=== PATIENT | male | born 1945 | race Caucasian/White ===

== ENCOUNTER → 2018-01-23 11:34 | Outpatient (CLI) | payer MEDICARE, OTHER, SELFPAY ==
[2018-01-23 12:54] LABS: ALB/GLOB Ratio 1.1 RATIO (0.9-2.4); AST(SGOT) 24 U/L (15-37); Alanine Aminotransfer ALT/SGPT 25 U/L (16-61); Albumin, Serum 3.7 g/dL (3.2-5.0); Alkaline Phosphatase 76 U/L (45-117); Anion Gap 5 (5-15); BUN 18 mg/dL (7-18); BUN/Creat Ratio 15.8 RATIO (10-20); Calcium,Total 8.8 mg/dL (8.5-10.1); Chloride 104 mmol/L (98-107); Creatinine, Serum 1.14 mg/dL (0.70-1.30); EST Glomerular Filtration Rate 67 mL/min (>60); Est Glom Filt Rate - Afr Amer 81 mL/min (>60); Free T3 2.5 pg/mL (2.18-3.98); Globulin 3.4 g/dL (2.2-4.2); Glucose 95 mg/dL (74-106); Potassium 4.2 mmol/L (3.5-5.1); Protein, Total 7.1 g/dL (6.4-8.2); Sodium Level 138 mmol/L (136-145); T4 Free Direct 1.49 ng/dL (0.76-1.46)
== END ==
PROVIDERS: Visit Provider Nurse Practitioner
DX: I10 Essential (primary) hypertension (principal); E03.9 Hypothyroidism, unspecified
CPT/HCPCS: 36415; 80053; 84439; 84443; 84481

== ENCOUNTER 2019-05-14 15:31 | Inpatient (IN) | payer MEDICARE, OTHER, SELFPAY ==
[2019-05-14] VITALS (15 sets, daily range): BP systolic 134–168; BP diastolic 57–82; PULSE 76–102; RESP 17–22; TEMP 36.7–37.1; O2SAT 96–100; BMI 27.6; BMI 27.3; BMI 27.4
[2019-05-14 16:48] LABS: Absolute Lymphocyte Count 1.05 X10^3/uL (0.83-4.51); Absolute Neutrophil Count 4.8 X10^3/uL (2.0-7.7); Basophil# 0.08 X10^3/uL; Basophil% 1.1 % (0-1); Eosinophil# 0.07 X10^3/uL; Hematocrit 21.4 % (40-54); Lymphocyte # 1.05 X10^3/ul (4.0); Lymphocyte % 15.1 % (19-41); Mean Corp Hgb Conc 27.1 g/dL (32-36); Mean Corpuscular Hgb 18.1 pg (27.0-32.0); Mean Corpuscular Volume 66.7 fL (80-94); Mean Platelet Vol. 11.5 fl (6.2-12.0); Monocyte% 12.9 % (0-10); NRBC Flagged by Analyzer 0 % (0-5); Neutrophil # 4.82 X10^3/uL (2.7-7.7); Neutrophil % 69.3 % (47-70); POSITIVE COUNT YES; Platelet Count 391 K/mm3 (150-450); Red Blood Count 3.21 M/mm3 (4.6-6.2)
[2019-05-14 16:53] LABS: Differential Indicated SCAN CRITERIA MET; Hemoglobin 5.8 g/dL (13.0-16.5)
[2019-05-14 16:56] LABS: Anion Gap 7 (5-15); BUN 21 mg/dL (7-18); BUN/Creat Ratio 19.4 RATIO (10-20); Calcium,Total 8.9 mg/dL (8.5-10.1); Chloride 108 mmol/L (98-107); Creatinine, Serum 1.08 mg/dL (0.70-1.30); EST Glomerular Filtration Rate 71 mL/min (>60); Est Glom Filt Rate - Afr Amer 86 mL/min (>60); Estimated Creatinine Clearance 61.96 ml/min; Glucose 104 mg/dL (74-106); Sodium Level 140 mmol/L (136-145)
[2019-05-14 17:19] LABS: Prothrombin Time (Protime)PT. 13.9 SECONDS (11.7-14.9)
[2019-05-14 17:20] LABS: International Normalized Ratio 1.1; Partial Thromboplast Time 26.4 Seconds (24.1-36.2)
--- NOTE | 2019-05-14 17:40 | ED.RN ---
ON HOLD FOR EXTENDED PERIOD OF TIME. SPOKE WITH BIBI ABOUT PATIENT STATUS AND REASON FOR BEING IN THE ER, PER JAMISON. BIBI STATED WE WILL CHECK WITH YOU IN THE MORNING
--- NOTE | 2019-05-14 17:51 | ED.VISSUMM ---
- ER Visit Summary Date of Service: 05/14/19 Chief Complaint: Anemia History of Present Illness: The patient is a 73 M who goes to the [facility]. He reports that he went to his routine visit last week and had a blood draw either on Tuesday or , he cannot remember which, and was called today and told his hemoglobin was 6 and he needs to go to the emergency department. Patient denies any known source of blood loss. No trauma or surgery. He has had no blood in his stools or black tarry stools. Does report that he bruises easily, but this is just something is happened as he aged. He denies any easy bleeding. He is not on anticoagulants. Patient does report that he has been more short of breath than usual with exertion over the past few weeks. He denies any chest pain. No fever or chills. Physical Examination: Vitals: Stable. Afebrile. General: Well-nourished and well-developed. Head: Normocephalic atraumatic. Neck: Supple, no lymphadenopathy. No JVD. Nontender. Cardiovascular: Regular rate and rhythm. No murmurs. Respiratory: No respiratory distress. Clear to auscultation bilaterally. Abdominal: Soft, nontender, nondistended, normal bowel sounds. No guarding, rebound, or peritoneal signs. Back: Nontender. Extremities: Nontender, no edema. Skin: Normal color, no rash. Neurologic: Alert and oriented ?3. Cranial nerves II through XII are intact. Normal strength and sensation. Psych: Normal affect. Test Results: CBC shows an H&H of 5.8 and 21.4, lymphocytes 15, monocytes 13. Chem-7 shows a chloride of 108 and BUN of 21. Coags are normal. Emergency Department Course and Treatment: Patient had negative with static vital signs. He was typed and crossed for 2 units packed red blood cells. Treatment Plan: We talked to the [facility] and they do not have beds available. Patient was discussed with Dr. Mcneill. He will be admitted to the hospital for further evaluation and treatment. Disposition: Admitted in stable condition. Impression: 1. Anemia. This note was generated with [employer] software. It may contain incorrect words, spelling, and punctuation that were not noted in review of the chart prior to signing ED Disposition - Plan for ED Patient: Referrals: [facility] [Primary Care Provider] -
--- NOTE | 2019-05-14 18:53 | ED.RN ---
pt's 1st unit is hung, pt will go to the floor after 1st 15 mins.
--- NOTE | 2019-05-14 19:03 | PCM.HP.STD ---
History of Present Illness Date of Admission: 05/14/19 The patient is a 73 year old M who has been feeling well other than some exertional SOB who was seen by his physician for a routine visit last week and had blood drawn last or . He was called today by his PCP and told his hemoglobin was 6 on his lab draw and to report to the ED. He denies and blood loss. Denies changes in his bowels, melena and hematochezia. He is on a baby aspirin. He has had no recent trauma or surgeries. His last colonoscopy was in 2008 but states that he has had FIT testing since then and everything has been negative. His does report that he has been more pale than usual over the last week but actually looks better today. In the ED here, his hgb was 5.8 with an MCV of 66.7. Interestingly, his RBC was 3.21, his hgb was 5.8 and his Hct was 21.4, which doesnt follow the rule of 3's. We have no baseline hgb in our records. Past Medical History Past Medical History (Chronic Problems): Chronic Problems (Last Reviewed 01/26/18 @ 09:28 by Bushra Fleming) Hypothyroidism (acquired) (Chronic) Medical History: Medical History (Last Reviewed 05/14/19 @ 19:13 by Vanda Mcneill DO) BPH (benign prostatic hyperplasia) N40.0 Goiter E04.9 Hypothyroidism (acquired) E03.9 Allergies No Known Allergies Allergy (Verified 05/14/19 16:19) Home Medications: Ambulatory Orders Medication Instructions Recorded Cholecalciferol (Vitamin D3) 2,000 unit PO DAILY 07/23/13 [Vitamin D3] aspirin 81 mg tablet,delayed 81 mg PO QDAY 01/23/18 release multivitamin tablet 1 tab PO QAM 01/23/18 levothyroxine 125 mcg tablet 125 mcg PO QDAY #90 tab 01/26/18 Surgical History: Surgical History (Last Reviewed 05/14/19 @ 19:13 by Vanda Mcneill DO) H/O thyroidectomy E89.0 Psychiatric History: No pertinent psych hx Lives: Spouse/ Significant Other Smoking Status: Former smoker Tobacco Use: Cigarettes Alcohol: None Drugs: None Review of Systems Constitutional: Denies: Anorexia, Chills, Fever, Night Sweats, Malaise, Weakness, Weight Change, Fatigue Eyes: Denies: Blurred vision, Cataracts, Conjunctivae Inflammation, Double vision, Drainage, Eyelid Inflammation, Pain, Redness, Vision Change HEENT: Denies: Difficulty Hearing, Difficulty Swallowing, Dysphasia, Ear Pain, Eye Pain, Hard of Hearing, Head Aches, Hearing Changes, Nasal bleeding, Nasal Congestion, Post Nasal Drip, Sinus Congestion, Sinus Drainage, Sore Throat, Visual Changes Cardiovascular: Denies: Chest Pain, Claudication, Chest Pressure, Chest Tightness, Edema, Heaviness, Light Headedness, Orthopnea, Palpitations, Paroxysmal Noc. Dyspnea, Syncope Respiratory: Reports: Shortness of breath upon exertion. Denies: Cough, Hemoptysis, Pleuritic Pain, Shortness of Breath, Shortness of breath at rest, Sputum production, Wheezing Gastrointestinal: Denies: Abdominal Pain, Constipation, Diarrhea, Dyspepsia, Hematemesis, Hematochezia, Nausea, Melena Genitourinary: Denies: Dysuria, Frequency, Hematuria, Hesitancy, Incontinence, Nocturia, Retention, Urgency Musculoskeletal: Denies: Arm Pain, Back Pain, Foot Pain, Hand Pain, Joint Pain, Joint stiffness, Joint swelling, Joint Tenderness, Leg Pain, Muscle pain, Neck Pain, Shoulder Pain Skin: Denies: Dryness, Jaundice, Lesions, Pruritis, Rash, Skin Changes, Wounds Neurological: Denies: Balance problems, Blurred vision, Double vision, Change in Speech, Slurred speech, Confusion, Difficulty swallowing, Focal weakness, Headaches, Incoordination, Numbness, Tingling, Tremor, Seizures Psychiatric: Denies: Anxiety, Depression Endocrine: Denies: Change in Body Habitus, Heat/ Cold Intolerance, Polydipsia, Polyuria, Hx of Irradiation Hematologic/ Lymphatic: Reports: Anemia, Easy Bruising. Denies: Adenopathy, Easy Bleeding, Petechiae, Purpura, Hx of blood clot, Hx of blood transfusion VTE Information - Inpt Only VTE Present on Admission: No VTE Mechan Device Prophylaxis: SCD's VTE Pharm Prophylaxis ordered?: No Patient Problems: Active and Suspected Problems (Last Reviewed 01/26/18 @ 09:28 by Bushra Fleming) Anemia (Acute) - Physical Exam Vitals/I&O's: Vital Signs Temp Pulse Resp BP Pulse Ox 98.7 F 82 18 166/77 H 99 05/14/19 18:51 05/14/19 18:51 05/14/19 18:51 05/14/19 18:51 05/14/19 18:51 Oxygen Delivery Method Room Air Weight: 87.317 kg Body Mass Index (BMI) 27.6 Intake and Output for Last 24 Hours 05/12/19 05/13/19 05/14/19 23:59 23:59 23:59 Intake Total 0 / 0 Balance 0 / 0 General: Alert, Oriented x3, Cooperative, No apparent distress, Well developed, Well nourished, - - at bedside HEENT: Atraumatic, PERRLA, EOMI, Normocephalic, TM's Clear, EAC Clear, Sluggish Pupils, Thyromegaly, Lymphadenopathy Oral: Moist Mucosa, No Gingival or Mucosal Lesions/ Ulcerations, - - upper dentures in place Neck: Supple, No JVD, Negative Carotid Bruits, No Nodes, No Nuchal Rigidity, Trachea Midline Lungs: Clear to auscultation, Normal air movement, No rhonchi, No wheeze, No rales Cardiovascular: Regular rate, Regular Rhythm, Normal S1, Normal S2, No murmurs, No Ectopic Activity, No rub noted, No Gallop Abdomen: Bowel Sounds Present, Soft, Non Tender, Non-Distended, No Hepato-splenomegaly, No hernias noted Extremities: No clubbing, No cyanosis, No edema, Capillary Refill Less than 3 Seconds, No Calf Tenderness, Peripheral Pulses Normal Skin: No rashes, No breakdown Musculoskeletal: No Tenderness to Palpation of Joints or Extremities, No Muscle Wasting Lymphatic: No Cervical, Supraclavicular, or Inguinal Adenopathy Neurological: Cranial nerves II-XII grossly intact, Deep Tendon Reflexes 2+/4 and Symmetrical, Neuro grossly intact, Motor Exam 5/5 strength throughout, Coordination normal Psych/Mental Status: Normal Affect, Appropriate, - - very pleasant, Alert and oriented to time, place, person, mood and affect Laboratory Results 05/14/19 16:23: WBC 7.0, RBC 3.21 L, Hgb 5.8 L*, Hct 21.4 L, MCV 66.7 L, MCH 18.1 L, MCHC 27.1 L, RDW Std Deviation 43.0, RDW Coeff of [place] 18.0 H, Plt Count 391, MPV 11.5, Immature Gran % (Auto) 0.600, Neut % (Auto) 69.3, Lymph % (Auto) 15.1 L, [place] % (Auto) 12.9 H, Eos % (Auto) 1.0, Baso % (Auto) 1.1 H, Absolute Neuts (auto) 4.8, Absolute Lymphs (auto) 1.05, Nucleated RBC % 0, Diff Path Review October05/14/19 16:23: PT 13.9, INR 1.1, APTT 26.4 05/14/19 16:23: Sodium 140, Potassium 4.0, Chloride 108 H, Carbon Dioxide 25.0, Anion Gap 7, BUN 21 H, Creatinine 1.08, Estim Creat Clear Calc 61.96, Est GFR (MDRD) Af Amer 86, Est GFR (MDRD) Non-Af 71, BUN/Creatinine Ratio 19.4, Glucose 104, Calcium 8.9 05/14/19 16:23: Blood Type A POSITIVE, Antibody Screen NEGATIVE 05/14/19 16:23: Crossmatch See Detail 05/14/19 18:45: Iron Pending, TIBC Pending, Iron Saturation Pending, Ferritin Pending Assessment/Plan All Active Problems (Last Reviewed 01/26/18 @ 09:28 by Bushra Fleming) Anemia (Acute) Severe Anemia -check iron studies/ferritin,retic count -Transfuse 2 units -RBC/Hgb/HCT doesnt follow the rules of 3--> may need hgb electrophoresis to r/o thalassemia judi if has been chronically low -will need C-Scope as outpt -likely d/c in am -hold asa for now Hypothyroidism -continue replacement Vit D Deficiency -restart replacement at d/c BPH -no meds at home Code Visit Inpatient E&M: 69814 Init Hosp L2
[2019-05-14 19:13] LABS: Ferritin 2 ng/mL (26-388); Iron 7 ug/dL (65-175); Iron Binding Capacity,Total 446 ug/dL (250-450); PERCENT IRON SATURATION 1.6 % (15.0-55.0)
[2019-05-15] VITALS (14 sets, daily range): BP systolic 142–182; BP diastolic 65–84; PULSE 73–98; RESP 16–18; TEMP 36.6–37.3; O2SAT 96–98
[2019-05-15] MEDS: 0.9% Saline Lock 10 ML Syringe IV (01:04)
[2019-05-15] MEDS: Levothyroxine 125 MCG Tablet PO (05:26)
[2019-05-15 05:43] LABS: Absolute Lymphocyte Count 1.21 X10^3/uL (0.83-4.51); Absolute Neutrophil Count 4.7 X10^3/uL (2.0-7.7); Basophil# 0.09 X10^3/uL; Basophil% 1.3 % (0-1); Eosinophil# 0.13 X10^3/uL; Eosinophils% 1.9 % (0-5); Hematocrit 23.3 % (40-54); Hemoglobin 6.6 g/dL (13.0-16.5); Immature Platelet Fraction 4.4 % (1.0-7.9); Lymphocyte # 1.21 X10^3/ul (4.0); Lymphocyte % 17.3 % (19-41); Mean Corp Hgb Conc 28.3 g/dL (32-36); Mean Corpuscular Hgb 19.6 pg (27.0-32.0); Mean Corpuscular Volume 69.3 fL (80-94); Monocyte# 0.86 X10^3/uL; Monocyte% 12.3 % (0-10); NRBC Flagged by Analyzer 0 % (0-5); Neutrophil # 4.66 X10^3/uL (2.7-7.7); Neutrophil % 66.6 % (47-70); POSITIVE MORPHOLOGY YES; Platelet Count 294 K/mm3 (150-450); RBC Distribution Width CV 21.7 % (11.6-14.6); Red Blood Count 3.36 M/mm3 (4.6-6.2); Reticulocyte Count 1.45 % (0.5-1.5)
[2019-05-15 06:28] LABS: AST(SGOT) 13 U/L (15-37); Alanine Aminotransfer ALT/SGPT 19 U/L (16-61); Albumin, Serum 3.2 g/dL (3.2-5.0); Alkaline Phosphatase 47 U/L (45-117); Anion Gap 6 (5-15); BUN 19 mg/dL (7-18); BUN/Creat Ratio 18.1 RATIO (10-20); Bilirubin, Direct 0.41 mg/dL (0.00-0.30); Calcium,Total 8.3 mg/dL (8.5-10.1); Chloride 106 mmol/L (98-107); Creatinine, Serum 1.05 mg/dL (0.70-1.30); EST Glomerular Filtration Rate 73 mL/min (>60); Est Glom Filt Rate - Afr Amer 89 mL/min (>60); Estimated Creatinine Clearance 63.73 ml/min; Globulin 2.8 g/dL (2.2-4.2); Glucose 94 mg/dL (74-106); Potassium 4.1 mmol/L (3.5-5.1); Sodium Level 138 mmol/L (136-145)
[2019-05-15 06:41] LABS: Differential Indicated SCAN CRITERIA MET
[2019-05-15 07:09] LABS: Anisocytosis 2+; Hypochromasia 2+; Platelet Estimate ADEQUATE (ADEQ)
[2019-05-15 07:10] LABS: Microcytosis 3+; Ovalocyte RARE
[2019-05-15 09:30] LABS: Thyroid Stim Hormone (TSH) 2.16 uIU/mL (0.358-3.74)
--- NOTE | 2019-05-15 10:25 | CASEMGMT ---
Clinicals faxed to [place] transfer center this am per their request. Namita DIXON CM
--- NOTE | 2019-05-15 10:41 | PN_ITS ---
<Luis Armando Mahmood - Last Filed: 05/15/19 10:41> Patient Problems: Active and Suspected Problems (Last Reviewed 05/14/19 @ 19:13 by Vanda Mcneill DO) Anemia (Acute) Iron deficiency anemia (Acute) Subjective: Pt reports he was in his normal state of health when the PCP called and told him labs were abnormal for anemia and sent him to the ER. He has received 2 units PRBC however Hgb only improved from 5.8 to 6.6 He denies recent black or bloody stools. He has had no nausea or vomiting. He has no abdominal pain. He has no SOB, dizziness, or LH. He has a hx of hemorrhoids but these have not been significantly bleeding lately. He denies hx anemia. He has seen Dr. Patino in the past for thyroidectomy for multinodular goiter for which he takes synthroid since. [facility] reports no abnormalities found. He has BPH and reports [facility] checks [facility] and it has never been abnormal. His mother has a hx of ovarian cancer. - Physical Exam Vitals/I&O's: Vital Signs Temp Pulse Resp BP Pulse Ox 98.2 F 92 18 163/73 H 97 05/15/19 10:07 05/15/19 10:07 05/15/19 10:07 05/15/19 10:07 05/15/19 10:07 Oxygen Delivery Method Room Air Weight: 191 lb 2.252 oz Body Mass Index (BMI) 27.3 Intake and Output for Last 24 Hours 05/13/19 05/14/19 05/15/19 23:59 23:59 23:59 Intake Total 778 / 778 405 / 405 Balance 778 / 778 405 / 405 General: Alert, Oriented x3, Cooperative HEENT: Atraumatic, PERRLA, EOMI, Normocephalic Neck: Supple, No JVD, Negative Carotid Bruits Lungs: Clear to auscultation, Normal air movement Cardiovascular: Regular rate, No murmurs Abdomen: Bowel Sounds Present, Soft, Non Tender Extremities: No edema, Capillary Refill Less than 3 Seconds Skin: No rashes, No breakdown Musculoskeletal: No Tenderness to Palpation of Joints or Extremities Neurological: Cranial nerves II-XII grossly intact Psych/Mental Status: Normal Affect, Appropriate, Alert and oriented to time, place, person, mood and affect Laboratory Results 05/14/19 16:23: WBC 7.0, RBC 3.21 L, Hgb 5.8 L*, Hct 21.4 L, MCV 66.7 L, MCH 18.1 L, MCHC 27.1 L, RDW Std Deviation 43.0, RDW Coeff of [place] 18.0 H, Plt Count 391, MPV 11.5, Immature Gran % (Auto) 0.600, Neut % (Auto) 69.3, Lymph % (Auto) 15.1 L, [place] % (Auto) 12.9 H, Eos % (Auto) 1.0, Baso % (Auto) 1.1 H, Absolute Neuts (auto) 4.8, Absolute Lymphs (auto) 1.05, Nucleated RBC % 0, Diff Path Review October05/14/19 16:23: PT 13.9, INR 1.1, APTT 26.4 05/14/19 16:23: Sodium 140, Potassium 4.0, Chloride 108 H, Carbon Dioxide 25.0, Anion Gap 7, BUN 21 H, Creatinine 1.08, Estim Creat Clear Calc 61.96, Est GFR (MDRD) Af Amer 86, Est GFR (MDRD) Non-Af 71, BUN/Creatinine Ratio 19.4, Glucose 104, Calcium 8.9 05/14/19 16:23: Blood Type A POSITIVE, Antibody Screen NEGATIVE 05/14/19 16:23: Crossmatch See Detail 05/14/19 16:23: Crossmatch See Detail 05/14/19 18:45: Iron 7 L, TIBC 446, Iron Saturation 1.6 L, Ferritin 2 L 05/15/19 05:05: WBC 7.0, RBC 3.36 L, Hgb 6.6 L, Hct 23.3 L, MCV 69.3 L, MCH 19.6 L, MCHC 28.3 L, RDW Std Deviation 53.0 H, RDW Coeff of [place] 21.7 H, Plt Count 294, MPV 12.0, Immature Gran % (Auto) 0.600, Neut % (Auto) 66.6, Lymph % (Auto) 17.3 L, [place] % (Auto) 12.3 H, Eos % (Auto) 1.9, Baso % (Auto) 1.3 H, Absolute Neuts (auto) 4.7, Absolute Lymphs (auto) 1.21, Nucleated RBC % 0, Platelet Estimate ADEQUATE, Immature Plt Fraction 4.4, Hypochromasia 2+, Anisocytosis 2+, Microcytosis 3+, Ovalocytes RARE, Retic Count 1.45, Immature Retic Fraction 29.30 H, Retic Hgb Equivalent 16.0 L 05/15/19 05:05: Sodium 138, Potassium 4.1, Chloride 106, Carbon Dioxide 26.0, Anion Gap 6, BUN 19 H, Creatinine 1.05, Estim Creat Clear Calc 63.73, Est GFR (MDRD) Af Amer 89, Est GFR (MDRD) Non-Af 73, BUN/Creatinine Ratio 18.1, Glucose 94, Calcium 8.3 L, Total Bilirubin 1.70 H, Direct Bilirubin 0.41 H, AST 13 L, ALT 19, Alkaline Phosphatase 47, Total Protein 6.0 L, Albumin 3.2, Globulin 2.8 05/15/19 05:05: TSH 2.16 Current Medications Dextrose (D50w Syringe) 0 gm IV X1 PRN; Protocol PRN Reason: Hypoglycemia Glucagon () 1 mg IM .X1 PRN PRN Reason: Hypoglycemia Sodium Chloride () 500 mls @ 15 mls/hr IV PRN PRN PRN Reason: Blood Transfusion Iron Sucrose 200 mg/ Sodium (Chloride) 110 mls @ 220 mls/hr IV DAILY JOHN Stop: 05/17/19 10:29 Levothyroxine Sodium (Synthroid) 125 mcg PO DAILY@0600 [facility] Last Admin: 05/15/19 05:26 Dose: 125 mcg Documented by: Sodium Chloride () 10 - 40 ml IV UD PRN PRN Reason: SALINE FLUSH Last Admin: 05/15/19 01:04 Dose: 20 ml Documented by: Medical Necessity - Tobacco Use Smoking Status: Former smoker Tobacco Use: Cigarettes Assessment/Plan All Active Problems (Last Reviewed 05/14/19 @ 19:13 by Vanda Mcneill DO) Anemia (Acute) Iron deficiency anemia (Acute) 1. Iron deficiency anemia - unclear etiology. decreased MCV, decreased ferritin, iron sat, and iron, with normal TIBC. Occult blood pending. TSH normal. Platelets normal. Total and direct bili somewhat elevated. -last colonoscopy 2008 no issues (at ) -saw Dr. Patino in the past - consult [place] [facility]. -hold aspirin, unclear why he takes this. -2 units transfused Hgb 5.8-->6.6, T/C 2 more units today -Venofer 200 mg IV qd x 3 doses then start PO iron. 2. BPH - normal PSA in past. Currently minimal symptoms. Takes flomax 3. Hypothyroidism 2/2 thyroidectomy for multinodular goiter - pt reports this was noncancerous at the time of bx. TSH normal. Contineu synthroid at current dose. DVT ppx: SCDs This patient was seen by Luis Armando Mahmood PA-C under the supervision of Doctor Hunter. <Gee Harrison - Last Filed: 05/15/19 15:20> - Physical Exam Vitals/I&O's: Vital Signs Temp Pulse Resp BP Pulse Ox 99.1 F 73 18 159/77 H 97 05/15/19 14:00 05/15/19 14:00 05/15/19 14:00 05/15/19 14:00 05/15/19 14:00 Oxygen Delivery Method Room Air Weight: 86.7 kg Body Mass Index (BMI) 27.3 Intake and Output for Last 24 Hours 05/13/19 05/14/19 05/15/19 23:59 23:59 23:59 Intake Total 778 / 778 1005 / 1005 Balance 778 / 778 1005 / 1005 Microbiology Past 72 Hours 05/15/19 Unknown Stool Stool Occult Blood (CHAVO) - Final Laboratory Results 05/14/19 16:23: WBC 7.0, RBC 3.21 L, Hgb 5.8 L*, Hct 21.4 L, MCV 66.7 L, MCH 18.1 L, MCHC 27.1 L, RDW Std Deviation 43.0, RDW Coeff of [place] 18.0 H, Plt Count 391, MPV 11.5, Immature Gran % (Auto) 0.600, Neut % (Auto) 69.3, Lymph % (Auto) 15.1 L, [place] % (Auto) 12.9 H, Eos % (Auto) 1.0, Baso % (Auto) 1.1 H, Absolute Neuts (auto) 4.8, Absolute Lymphs (auto) 1.05, Nucleated RBC % 0, Diff Path Review Reviewed 05/14/19 16:23: PT 13.9, INR 1.1, APTT 26.4 05/14/19 16:23: Sodium 140, Potassium 4.0, Chloride 108 H, Carbon Dioxide 25.0, Anion Gap 7, BUN 21 H, Creatinine 1.08, Estim Creat Clear Calc 61.96, Est GFR (MDRD) Af Amer 86, Est GFR (MDRD) Non-Af 71, BUN/Creatinine Ratio 19.4, Glucose 104, Calcium 8.9 05/14/19 16:23: Blood Type A POSITIVE, Antibody Screen NEGATIVE 05/14/19 16:23: Crossmatch See Detail 05/14/19 16:23: Crossmatch See Detail 05/14/19 18:45: Iron 7 L, TIBC 446, Iron Saturation 1.6 L, Ferritin 2 L 05/15/19 05:05: WBC 7.0, RBC 3.36 L, Hgb 6.6 L, Hct 23.3 L, MCV 69.3 L, MCH 19.6 L, MCHC 28.3 L, RDW Std Deviation 53.0 H, RDW Coeff of [place] 21.7 H, Plt Count 294, MPV 12.0, Immature Gran % (Auto) 0.600, Neut % (Auto) 66.6, Lymph % (Auto) 17.3 L, [place] % (Auto) 12.3 H, Eos % (Auto) 1.9, Baso % (Auto) 1.3 H, Absolute Neuts (auto) 4.7, Absolute Lymphs (auto) 1.21, Nucleated RBC % 0, Platelet Estimate ADEQUATE, Immature Plt Fraction 4.4, Hypochromasia 2+, Anisocytosis 2+, Microcytosis 3+, Ovalocytes RARE, Retic Count 1.45, Immature Retic Fraction 29.30 H, Retic Hgb Equivalent 16.0 L 05/15/19 05:05: Sodium 138, Potassium 4.1, Chloride 106, Carbon Dioxide 26.0, Anion Gap 6, BUN 19 H, Creatinine 1.05, Estim Creat Clear Calc 63.73, Est GFR (MDRD) Af Amer 89, Est GFR (MDRD) Non-Af 73, BUN/Creatinine Ratio 18.1, Glucose 94, Calcium 8.3 L, Total Bilirubin 1.70 H, Direct Bilirubin 0.41 H, AST 13 L, ALT 19, Alkaline Phosphatase 47, Total Protein 6.0 L, Albumin 3.2, Globulin 2.8 05/15/19 05:05: TSH 2.16 05/15/19 05:25: Lactate Dehydrogenase 233 Current Medications Dextrose (D50w Syringe) 0 gm IV X1 PRN; Protocol PRN Reason: Hypoglycemia Glucagon () 1 mg IM .X1 PRN PRN Reason: Hypoglycemia Sodium Chloride () 500 mls @ 15 mls/hr IV PRN PRN PRN Reason: Blood Transfusion Iron Sucrose 200 mg/ Sodium (Chloride) 110 mls @ 220 mls/hr IV DAILY JOHN Stop: 05/17/19 10:29 Levothyroxine Sodium (Synthroid) 125 mcg PO DAILY@0600 JOHN Last Admin: 05/15/19 05:26 Dose: 125 mcg Documented by: Polyethylene Glycol (Clearlax For Bowel Prep) 0 bottle PO 1600 JOHN Stop: 05/15/19 16:01 Sodium Chloride () 10 - 40 ml IV UD PRN PRN Reason: SALINE FLUSH Last Admin: 05/15/19 01:04 Dose: 20 ml Documented by: Assessment/Plan This patient was seen in conjunction with Luis Armando Mahmood PA-C . I have independently interviewed and examined the patient and reviewed pertinent historical, laboratory, and other data. Please refer to Luis Armando Mahmood PA-C note for details of this patient's presentation, findings, and recommendations. I have reviewed Luis Armando Mahmood PA-C note and concur with documented findings. In brief, patient is a 83-year-old gentleman who was sent to the ED after routine lab work drawn as outpatient came back abnormal. He was found to have significant anemia with hemoglobin of 5.8 with MCV of 69.3 patient admitted to regular nursing floor he has received 2 unit PRBC transfusion so far. Consult placed to general surgery for both upper and lower endoscopic evaluation Physical Examination: GENERAL: cooperative HEENT: Atraumatic; EYES; pallor of the conjunctiva NECK; supple, normal thyroid, RESPIRATORY: Diminished to auscultation CARDIOVASCULAR: Regular S1 S2, GI: soft, normoactive bowel sounds, : No Renal angle tenderness; EXTREMITIES: No edema, no clubbing, MUSCULOSKELETAL: no muscle waisting NEURO: Awake; no lateralizing signs. SKIN: No Rash PSYCH; Flat affect Assessment: 1. Severe microcytic anemia 2. Suspected chronic blood loss anemia from the GI tract 3. History of multi-nodular goiter status post thyroidectomy 4. Hypothyroidism secondary to #2 5. BPH patient on Flomax Recommendations: 1. I have discussed the results of my overview and impressions with the patient 2. Options for management were reviewed Code Visit Inpatient E&M: 59396 Subs Hosp L3
[2019-05-15 11:46] LABS: Pathologist Review Reviewed
--- NOTE | 2019-05-15 13:19 | CASEMGMT ---
DESTINY HOPKINS assessment: Face to Face with patient for initial transition planning/care coordination assessment. DESTINY HOPKINS introduced self and role at [facility], pt voices understanding and consents to assessment at this time. Pt is sitting up in bed in no distress at this time. Pt is A/Ox4 at this time and answers all questions appropriately at this time. Care providers, pharmacy, and demographics verified/updated at this time. PCP: MARGARITA Cano, pt declines to transfer to [facility] at this time and declination form signed and faxed to [facility] at this time. Specialists: Sukumar, surgeon Preferred Pharmacy: [facility]: [facility] Prescription Benefit: [facility], [employer] Living Will/HPOA: Pt states has LW/HPOA but plans to change them as he just got 2 weeks ago. Pt is aware that SW can do this for him here but pt states plans to have [facility] take care of all as well as will. LNOK: Yamilet Patel, ; Mervat Patel, daughter Living Arrangements: Pt states lives with in 1 story home and states no concerns at home at this time. Pt states is independent with ADL's. Transportation: Pt states drives self and states no transportation concerns at this time. DME/HHC: Pt states no current DME or need for any at this time. Pt states no hx of HHC or SNF in the past. Pt states no concerns with going home at time of discharge. 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 Pt states does not smoke but does drink about 4 times/week. Pt states no further concerns/needs at this time. CM to follow for any further discharge planning/needs. Advised pt to ask for CM if any further questions/concerns/needs arise, voices understanding. Pt Goal: [place]STINY HOPKINS
--- NOTE | 2019-05-15 13:25 | CON.PCM_ITS ---
Problem List (1) Iron deficiency anemia Status: Acute Qualifiers: Iron deficiency anemia type: unspecified iron deficiency Qualified Code(s): D50.9 - Iron deficiency anemia, unspecified Reason for Consult Date of Consultation: 05/15/19 Reason for Consultation: Iron deficiency anemia History of Present Illness: The patient is a 73 year old M who presents with anemia after routine blood analysis. The patient reports he has not noticed any gross blood in his stool. He does take a daily aspirin. He is not having any abdominal pain. His last colonoscopy was 10 years ago. Past Medical History Past Medical History (Chronic Problems): Chronic Problems (Last Reviewed 05/14/19 @ 19:13 by Vanda Mcneill DO) Hypothyroidism (acquired) (Chronic) Medical History: Medical History (Last Reviewed 05/14/19 @ 19:13 by Vanda Mcneill DO) BPH (benign prostatic hyperplasia) N40.0 Goiter E04.9 Hypothyroidism (acquired) E03.9 Allergies No Known Allergies Allergy (Verified 05/14/19 16:19) Home Medications: Ambulatory Orders Medication Instructions Recorded Cholecalciferol (Vitamin D3) 2,000 unit PO DAILY 07/23/13 [Vitamin D3] aspirin 81 mg tablet,delayed 81 mg PO QDAY 01/23/18 release multivitamin tablet 1 tab PO QAM 01/23/18 levothyroxine 125 mcg tablet 125 mcg PO QDAY #90 tab 01/26/18 Surgical History: Surgical History (Last Reviewed 05/14/19 @ 19:13 by Vanda Mcneill DO) H/O thyroidectomy E89.0 Psychiatric History: No pertinent psych hx Lives: Spouse/ Significant Other Smoking Status: Former smoker Tobacco Use: Cigarettes Alcohol: None Drugs: None Review of Systems Constitutional: Denies: Anorexia, Fever Eyes: Denies: Blurred vision HEENT: Denies: Difficulty Swallowing Cardiovascular: Denies: Chest Pain Respiratory: Denies: Cough Gastrointestinal: Denies: Abdominal Pain, Hematemesis, Hematochezia, Nausea, Melena, Vomiting Genitourinary: Denies: Dysuria Musculoskeletal: Denies: Joint Tenderness Skin: Denies: Jaundice Neurological: Denies: Balance problems Hematologic/ Lymphatic: Reports: Anemia Patient Problems: Active and Suspected Problems (Last Reviewed 05/14/19 @ 19:13 by Vanda Mcneill DO) Anemia (Acute) Iron deficiency anemia (Acute) - Physical Exam Vitals/I&O's: Vital Signs Temp Pulse Resp BP Pulse Ox 98.8 F 81 18 153/74 H 97 05/15/19 13:00 05/15/19 13:00 05/15/19 13:00 05/15/19 13:00 05/15/19 13:00 Oxygen Delivery Method Room Air Weight: 191 lb 2.252 oz Body Mass Index (BMI) 27.3 Intake and Output for Last 24 Hours 05/13/19 05/14/19 05/15/19 23:59 23:59 23:59 Intake Total 778 / 778 1005 / 1005 Balance 778 / 778 1005 / 1005 General: Alert, Oriented x3 Neck: No JVD Lungs: Normal air movement Cardiovascular: Regular rate Abdomen: Soft, Non Tender, Non-Distended Extremities: No clubbing Skin: No rashes Musculoskeletal: No Muscle Wasting Neurological: Cranial nerves II-XII grossly intact Psych/Mental Status: Normal Affect Laboratory Results 05/14/19 16:23: WBC 7.0, RBC 3.21 L, Hgb 5.8 L*, Hct 21.4 L, MCV 66.7 L, MCH 18.1 L, MCHC 27.1 L, RDW Std Deviation 43.0, RDW Coeff of [place] 18.0 H, Plt Count 391, MPV 11.5, Immature Gran % (Auto) 0.600, Neut % (Auto) 69.3, Lymph % (Auto) 15.1 L, [place] % (Auto) 12.9 H, Eos % (Auto) 1.0, Baso % (Auto) 1.1 H, Absolute Neuts (auto) 4.8, Absolute Lymphs (auto) 1.05, Nucleated RBC % 0, Diff Path Review Reviewed 05/14/19 16:23: PT 13.9, INR 1.1, APTT 26.4 05/14/19 16:23: Sodium 140, Potassium 4.0, Chloride 108 H, Carbon Dioxide 25.0, Anion Gap 7, BUN 21 H, Creatinine 1.08, Estim Creat Clear Calc 61.96, Est GFR (MDRD) Af Amer 86, Est GFR (MDRD) Non-Af 71, BUN/Creatinine Ratio 19.4, Glucose 104, Calcium 8.9 05/14/19 16:23: Blood Type A POSITIVE, Antibody Screen NEGATIVE 05/14/19 16:23: Crossmatch See Detail 05/14/19 16:23: Crossmatch See Detail 05/14/19 18:45: Iron 7 L, TIBC 446, Iron Saturation 1.6 L, Ferritin 2 L 05/15/19 05:05: WBC 7.0, RBC 3.36 L, Hgb 6.6 L, Hct 23.3 L, MCV 69.3 L, MCH 19.6 L, MCHC 28.3 L, RDW Std Deviation 53.0 H, RDW Coeff of [place] 21.7 H, Plt Count 294, MPV 12.0, Immature Gran % (Auto) 0.600, Neut % (Auto) 66.6, Lymph % (Auto) 17.3 L, [place] % (Auto) 12.3 H, Eos % (Auto) 1.9, Baso % (Auto) 1.3 H, Absolute Neuts (auto) 4.7, Absolute Lymphs (auto) 1.21, Nucleated RBC % 0, Platelet Estimate ADEQUATE, Immature Plt Fraction 4.4, Hypochromasia 2+, Anisocytosis 2+, Microcytosis 3+, Ovalocytes RARE, Retic Count 1.45, Immature Retic Fraction 29.30 H, Retic Hgb Equivalent 16.0 L 05/15/19 05:05: Sodium 138, Potassium 4.1, Chloride 106, Carbon Dioxide 26.0, Anion Gap 6, BUN 19 H, Creatinine 1.05, Estim Creat Clear Calc 63.73, Est GFR (MDRD) Af Amer 89, Est GFR (MDRD) Non-Af 73, BUN/Creatinine Ratio 18.1, Glucose 94, Calcium 8.3 L, Total Bilirubin 1.70 H, Direct Bilirubin 0.41 H, AST 13 L, ALT 19, Alkaline Phosphatase 47, Total Protein 6.0 L, Albumin 3.2, Globulin 2.8 05/15/19 05:05: TSH 2.16 Current Medications Bisacodyl (Dulcolax) 20 mg PO 1300 JOHN Dextrose (D50w Syringe) 0 gm IV X1 PRN; Protocol PRN Reason: Hypoglycemia Glucagon () 1 mg IM .X1 PRN PRN Reason: Hypoglycemia Sodium Chloride () 500 mls @ 15 mls/hr IV PRN PRN PRN Reason: Blood Transfusion Iron Sucrose 200 mg/ Sodium (Chloride) 110 mls @ 220 mls/hr IV DAILY JOHN Stop: 05/17/19 10:29 Levothyroxine Sodium (Synthroid) 125 mcg PO DAILY@0600 JOHN Last Admin: 05/15/19 05:26 Dose: 125 mcg Documented by: Polyethylene Glycol (Clearlax For Bowel Prep) 0 bottle PO DAILY@1400 JOHN Sodium Chloride () 10 - 40 ml IV UD PRN PRN Reason: SALINE FLUSH Last Admin: 05/15/19 01:04 Dose: 20 ml Documented by: Assessment/Plan All Active Problems (Last Reviewed 05/14/19 @ 19:13 by Vanda Mcneill DO) Anemia (Acute) Iron deficiency anemia (Acute) 73-year-old male with iron deficiency anemia 1. The patient has severe anemia as well as severe iron deficiency. FOBT is pending. Patient notes that he has not had any gross blood in his last colonoscopy was 10 years ago. He is on a daily aspirin. 2. I explained endoscopy in detail to the patient. I explained the risks including but not limited to stroke or heart attack with anesthesia, perforation of the GI tract, bleeding, infection. I explained that any of these could necessitate further emergency surgery. The patient understands and all questions were answered sufficiently. The patient wishes to proceed with procedure. Jim Vera MD Pager: [facility] [address] [place] [address], [address] [place] [address] Office:
[2019-05-15 14:22] LABS: LDH 233 U/L (87-241)
[2019-05-15] MEDS: Bisacodyl 5 MG Tablet 20 MG PO (15:31)
[2019-05-15] MEDS: Polyethylene Glycol 3350 BOWEL PREP PO (17:06)
[2019-05-16] VITALS (7 sets, daily range): BP systolic 126–164; BP diastolic 52–75; PULSE 67–82; RESP 16–18; TEMP 36.6–36.9; O2SAT 94–98
--- NOTE | 2019-05-16 00:48 | EKG12_ITS ---
Test Reason : AM EKG Blood Pressure : / mmHG Vent. Rate : 081 BPM Atrial Rate : 081 BPM P-R Int : 144 ms QRS Dur : 082 ms QT Int : 344 ms P-R-T Axes : 056 048 053 degrees QTc Int : 399 ms Normal sinus rhythm Normal ECG When compared with ECG of 23-JUL-2013 11:32, No significant change was found Confirmed by BRIELLE SALDAÑA, ESTEBAN ([id number]), film and video editor JAZMIN CABRERA ([id number]) on 05/21/2019 10:04:39 AM Referred By: Vanda Mcneill Confirmed By:ESTEBAN HANNAH MD
[2019-05-16 06:22] LABS: Hematocrit 31.3 % (40-54); Hemoglobin 9.3 g/dL (13.0-16.5); Mean Corp Hgb Conc 29.7 g/dL (32-36); Mean Corpuscular Hgb 21.6 pg (27.0-32.0); Mean Corpuscular Volume 72.8 fL (80-94); Mean Platelet Vol. 11.1 fl (6.2-12.0); POSITIVE MORPHOLOGY YES; Platelet Count 340 K/mm3 (150-450); RBC Distribution Width CV 23.6 % (11.6-14.6); RBC Distribution Width SD 59.5 fl (35.1-43.9); White Blood Count 10.6 K/mm3 (4.4-11.0)
[2019-05-16 06:36] LABS: ALB/GLOB Ratio 1.2 RATIO (0.9-2.4); AST(SGOT) 14 U/L (15-37); Alanine Aminotransfer ALT/SGPT 19 U/L (16-61); Albumin, Serum 3.4 g/dL (3.2-5.0); Alkaline Phosphatase 55 U/L (45-117); Anion Gap 4 (5-15); BUN 12 mg/dL (7-18); BUN/Creat Ratio 10.4 RATIO (10-20); Chloride 112 mmol/L (98-107); Creatinine, Serum 1.15 mg/dL (0.70-1.30); EST Glomerular Filtration Rate 66 mL/min (>60); Est Glom Filt Rate - Afr Amer 80 mL/min (>60); Estimated Creatinine Clearance 58.19 ml/min; Globulin 2.9 g/dL (2.2-4.2); Glucose 95 mg/dL (74-106); Potassium 4.1 mmol/L (3.5-5.1); Protein, Total 6.3 g/dL (6.4-8.2); Sodium Level 142 mmol/L (136-145)
[2019-05-16 07:12] LABS: Scan Indicated on CBC? Y/N YES- FLAGS NOTED
[2019-05-16 07:21] LABS: Differential Comment SCANNED
--- NOTE | 2019-05-16 08:08 | PCM.PN.SRG ---
Patient Problems: Active and Suspected Problems (Last Reviewed 05/14/19 @ 19:13 by Vanda Mcneill DO) Anemia (Acute) Iron deficiency anemia (Acute) Subjective: Patient reports no issues overnight. He reports that his stool is clear after bowel prep. - Physical Exam Vitals/I&O's: Vital Signs Temp Pulse Resp BP Pulse Ox 97.8 F 82 16 160/75 H 97 05/16/19 03:49 05/16/19 03:49 05/16/19 03:49 05/16/19 03:49 05/16/19 03:49 Oxygen Delivery Method Room Air Weight: 191 lb 2.252 oz Body Mass Index (BMI) 27.3 Intake and Output for Last 24 Hours 05/14/19 05/15/19 05/16/19 23:59 23:59 23:59 Intake Total 778 / 778 2115 / 4115 1999 Output Total 600 / 600 Balance 778 / 778 1515 / 3515 1999 General: Alert, Oriented x3 Lungs: Normal air movement Cardiovascular: Regular rate, Regular Rhythm Abdomen: Soft, Non Tender, Non-Distended Microbiology Past 72 Hours 05/15/19 Unknown Stool Stool Occult Blood (CHAVO) - Final Laboratory Results 05/14/19 16:23: Diff Path Review Reviewed 05/14/19 16:23: Crossmatch See Detail 05/15/19 05:05: TSH 2.16 05/15/19 05:25: Lactate Dehydrogenase 233 05/15/19 17:20: Haptoglobin Pending 05/16/19 06:00: WBC 10.6, RBC 4.30 L, Hgb 9.3 L, Hct 31.3 L, MCV 72.8 L D, MCH 21.6 L, MCHC 29.7 L, RDW Std Deviation 59.5 H, RDW Coeff of [place] 23.6 H, Plt Count 340, MPV 11.1, Differential Comment SCANNED 05/16/19 06:00: Sodium 142, Potassium 4.1, Chloride 112 H, Carbon Dioxide 26.0, Anion Gap 4 L, BUN 12, Creatinine 1.15, Estim Creat Clear Calc 58.19, Est GFR (MDRD) Af Amer 80, Est GFR (MDRD) Non-Af 66, BUN/Creatinine Ratio 10.4, Glucose 95, Calcium 9.0, Total Bilirubin 2.00 H, AST 14 L, ALT 19, Alkaline Phosphatase 55, Total Protein 6.3 L, Albumin 3.4, Globulin 2.9, Albumin/Globulin Ratio 1.2 Current Medications Dextrose (D50w Syringe) 0 gm IV X1 PRN; Protocol PRN Reason: Hypoglycemia Glucagon () 1 mg IM .X1 PRN PRN Reason: Hypoglycemia Sodium Chloride () 500 mls @ 15 mls/hr IV PRN PRN PRN Reason: Blood Transfusion Iron Sucrose 200 mg/ Sodium (Chloride) 110 mls @ 220 mls/hr IV DAILY JOHN Stop: 05/17/19 10:29 Last Infusion: 05/15/19 16:14 Dose: Infused Documented by: Sodium Chloride () 1,000 mls @ 75 mls/hr IV .[id number] JOHN Levothyroxine Sodium (Synthroid) 125 mcg PO DAILY@0600 [facility] Last Admin: 05/16/19 06:15 Dose: Not Given Documented by: Sodium Chloride () 10 - 40 ml IV UD PRN PRN Reason: SALINE FLUSH Last Admin: 05/15/19 01:04 Dose: 20 ml Documented by: Medical Necessity - Tobacco Use Smoking Status: Former smoker Tobacco Use: Cigarettes Assessment/Plan All Active Problems (Last Reviewed 05/14/19 @ 19:13 by Vanda Mcneill DO) Anemia (Acute) Iron deficiency anemia (Acute) 73-year-old male with iron deficiency anemia 1. The patient reports that he has no issues this morning. He has not noticed any blood during the bowel prep. His hemoglobin has responded appropriately to infusions. Plan for EGD and colonoscopy this afternoon. The patient also has an elevated bilirubin. It is hard to say if there is some sort of hematoma that is the cause of his anemia. Resumption of the hematoma would likely lead to an elevated bilirubin level. He does not note any trauma. Jim Vera MD Pager: [facility] [address] [place] [address], [address] [place] [address] Office:
[2019-05-16] MEDS: 0.9% Normal Saline 1,000 ML 75 ML IV (08:49)
--- NOTE | 2019-05-16 11:05 | PCM.DC ---
- Discharge Diagnoses Current Active Problems: Current Active and Chronic Problems (Last Reviewed 05/14/19 @ 19:13 by Vanda Mcneill DO) Anemia (Acute) Iron deficiency anemia (Acute) You will use the following diet at home:: No restrictions Your food should be the consistency of: Regular Your liquids should be the consistency of: Regular/Thin Discharge Activity: Return to Normal Activity Allergies/Adverse Reactions: Allergies No Known Allergies Allergy (Verified 05/14/19 16:19) Medications to take at Discharge Cholecalciferol (Vitamin D3) [Vitamin D3] 2,000 unit PO DAILY 07/23/13 multivitamin tablet 1 tab PO QAM 01/23/18 levothyroxine 125 mcg tablet 125 mcg PO QDAY #90 tab 01/26/18 Iron Polysaccharide Complex [Ferrex 150] 150 mg PO DAILY #30 cap 05/16/19 The following prescriptions were given: Iron Polysaccharide Complex [Ferrex 150] 150 mg PO DAILY #30 cap Prescription Printed Primary Care Physician: [facility] [Primary Care Provider] - Please follow up with your Primary Care Physician in: 1-2 weeks Test Results: Test results from this visit will be discussed in further detail at your follow-up appointment, if applicable. Please Follow Up With: Jim Vera MD When: as directed Proposed Discharge Date: 05/16/19
--- NOTE | 2019-05-16 14:56 | OP.EGD_ITS ---
Patient Name: Rahul Patel Procedure Date: 05/16/2019 2:01 PM Date of : 1945 Age: 73 Procedure: Upper GI endoscopy Indications: Iron deficiency anemia Providers: Jim Vera MD Referring MD: Vanda Mcneill DO Medicines: Monitored Anesthesia Care Patient Profile: This is a 73 year old male. Refer to note in patient chart for documentation of history and physical. Complications: No immediate complications. Estimated blood loss: None. Procedure: Pre-Anesthesia Assessment: - Prior to the procedure, a History and Physical was performed, and patient medications and allergies were reviewed. The patient's tolerance of previous anesthesia was also reviewed. The risks and benefits of the procedure and the sedation options and risks were discussed with the patient. All questions were answered, and informed consent was obtained. Prior Anticoagulants: The patient has taken aspirin, last dose was 1 day prior to procedure. After reviewing the risks and benefits, the patient was deemed in satisfactory condition to undergo the procedure. After obtaining informed consent, the endoscope was passed under direct vision. Throughout the procedure, the patient's blood pressure, pulse, and oxygen saturations were monitored continuously. The gastroscope was introduced through the mouth, and advanced to the second part of duodenum. The upper GI endoscopy was accomplished without difficulty. The patient tolerated the procedure well. Scope In: 2:27:01 PM Scope Out: 2:30:42 PM Total Procedure Duration Time 0 hours 3 minutes 41 seconds Findings: A large hiatal hernia was present. One non-bleeding linear gastric ulcer with no stigmata of bleeding was found in the stomach. Impression: - Large hiatal hernia. - Non-bleeding gastric ulcer with no stigmata of bleeding. - No specimens collected. Recommendation: - [facility]. - Resume previous diet. - Continue present medications. - Use Prilosec (omeprazole) 20 mg PO BID. Procedure Code(s): --- Professional --- 38077, Esophagogastroduodenoscopy, flexible, transoral; diagnostic, including collection of specimen(s) by brushing or washing, when performed (separate procedure) Diagnosis Code(s): --- Professional --- K44.9, Diaphragmatic hernia without obstruction or gangrene K25.9, Gastric ulcer, unspecified as acute or chronic, without hemorrhage or perforation D50.9, Iron deficiency anemia, unspecified CPT copyright 2017 [employer]. All rights reserved. The codes documented in this report are preliminary and upon area intelligence technician review may be revised to meet current compliance requirements. Jim Vera MD 05/16/2019 2:55:46 PM This report has been signed electronically. Number of Addenda: 0 Note Initiated On: 05/16/2019 2:01 PM
--- NOTE | 2019-05-16 14:59 | OP.COLON_ITS ---
Patient Name: Rahul Patel Procedure Date: 05/16/2019 2:32 PM Date of : 1945 Age: 73 Procedure: Colonoscopy Indications: Iron deficiency anemia Providers: Jim Vera MD Referring MD: Vanda Mcneill DO Medicines: Monitored Anesthesia Care Patient Profile: This is a 73 year old male. Refer to note in patient chart for documentation of history and physical. Last Colonoscopy: 10 years ago. Complications: No immediate complications. Procedure: Pre-Anesthesia Assessment: - Prior to the procedure, a History and Physical was performed, and patient medications and allergies were reviewed. The patient's tolerance of previous anesthesia was also reviewed. The risks and benefits of the procedure and the sedation options and risks were discussed with the patient. All questions were answered, and informed consent was obtained. Prior Anticoagulants: The patient has taken aspirin, last dose was 1 day prior to procedure. After reviewing the risks and benefits, the patient was deemed in satisfactory condition to undergo the procedure. After I obtained informed consent, the scope was passed under direct vision. Throughout the procedure, the patient's blood pressure, pulse, and oxygen saturations were monitored continuously. The Colonoscope was introduced through the anus and advanced to the cecum, identified by appendiceal orifice and ileocecal valve. The colonoscopy was performed without difficulty. The patient tolerated the procedure well. The quality of the bowel preparation was good. Scope In: 2:33:04 PM Scope Withdrawal Time 0 hours 5 minutes 54 seconds Scope Out: 2:49:32 PM Total Procedure Duration Time 0 hours 16 minutes 28 seconds Findings: The entire examined colon appeared normal on direct and retroflexion views. Non-bleeding internal hemorrhoids were found during retroflexion. Impression: - The entire examined colon is normal on direct and retroflexion views. - No specimens collected. Recommendation: - [facility]. - No repeat colonoscopy due to current age (66 years or older). - Continue present medications. Procedure Code(s): --- Professional --- 12297, Colonoscopy, flexible; diagnostic, including collection of specimen(s) by brushing or washing, when performed (separate procedure) Diagnosis Code(s): --- Professional --- D50.9, Iron deficiency anemia, unspecified CPT copyright 2017 [employer]. All rights reserved. The codes documented in this report are preliminary and upon groundskeeping maintenance worker review may be revised to meet current compliance requirements. Jim Vera MD 05/16/2019 2:58:32 PM This report has been signed electronically. Number of Addenda: 0 Note Initiated On: 05/16/2019 2:32 PM
--- NOTE | 2019-05-16 15:00 | PCM.PN.BLA ---
Progress Note Exam and EGD and colonoscopy on the patient. The patient did have a small linear ulcer in the antrum of the stomach with no stigmata of bleeding. A large hiatal hernia as well. On colonoscopy the patient only had hemorrhoids. There is no stigmata of bleeding or active bleeding anywhere in the colon. No masses or polyps. Starting on a PPI and Carafate and continue these on discharge. Jim Vera MD Pager: [facility] [address] [place] [address] [address] [place] [address] Office:
--- NOTE | 2019-05-16 15:12 | PCM.DC.SUM ---
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 He was sent for anemia, and in the ER hemoglobin was 5.8 and he had significant microcytosis with MCV of 66.6, normal platelets. He was admitted to the PCU for presumed GI bleed. His aspirin was discontinued. He was significantly iron deficient with an iron of 7, normal TIBC, iron saturation of 1.6 and ferritin of 2. He was given 2 dose of IV Venofer. General surgery was consulted for possible need for endoscopy. Patient was transfused with 2 units of packed red blood cells overnight and increased from 5.8-6.6. He was transfused with 2 more units of packed red blood cells improved to 9.3. He remained asymptomatic throughout his stay. He was taken for an EGD and colonoscopy by the general surgeon. He was found to have a large hiatal hernia, nonbleeding gastric ulcer, and hemorrhoids that were nonbleeding. General surgery recommended initiation of omeprazole 20 twice daily and Carafate 1 g 4 times per day. These were prescribed at discharge. The patient was discharged home in stable condition and will follow-up with his PCP in 1 to 2 weeks. He will need to follow-up with general surgery as directed. This patient was seen by Luis Armando Mahmood PA-C under the supervision of Doctor Harrison. [] - Physical Exam Vitals/I&O's: Vital Signs Temp Pulse Resp BP Pulse Ox 98 F 82 16 130/68 H 95 05/16/19 14:55 05/16/19 14:55 05/16/19 14:55 05/16/19 14:55 05/16/19 14:55 Oxygen Delivery Method Room Air Weight: 191 lb 2.252 oz Body Mass Index (BMI) 27.3 Intake and Output for Last 24 Hours 05/14/19 05/15/19 05/16/19 23:59 23:59 23:59 Intake Total 778 / 778 2115 / 4115 2223.75 / 2223.75 Output Total 600 / 600 Balance 778 / 778 1515 / 3515 2223.75 / 2223.75 General: Alert, Oriented x3, Cooperative HEENT: Atraumatic, PERRLA, EOMI, Normocephalic Neck: Supple, No JVD, Negative Carotid Bruits Lungs: Clear to auscultation, Normal air movement Cardiovascular: Regular rate, No murmurs Abdomen: Bowel Sounds Present, Soft, Non Tender Extremities: No edema, Capillary Refill Less than 3 Seconds Skin: No rashes, No breakdown Musculoskeletal: No Tenderness to Palpation of Joints or Extremities Neurological: Cranial nerves II-XII grossly intact Psych/Mental Status: Normal Affect, Appropriate, Alert and oriented to time, place, person, mood and affect Microbiology Past 72 Hours 05/15/19 Unknown Stool Stool Occult Blood (CHAVO) - Final Laboratory Results 05/14/19 16:23: Crossmatch See Detail 05/15/19 17:20: Haptoglobin Pending 05/16/19 06:00: WBC 10.6, RBC 4.30 L, Hgb 9.3 L, Hct 31.3 L, MCV 72.8 L D, MCH 21.6 L, MCHC 29.7 L, RDW Std Deviation 59.5 H, RDW Coeff of [place] 23.6 H, Plt Count 340, MPV 11.1, Differential Comment SCANNED 05/16/19 06:00: Sodium 142, Potassium 4.1, Chloride 112 H, Carbon Dioxide 26.0, Anion Gap 4 L, BUN 12, Creatinine 1.15, Estim Creat Clear Calc 58.19, Est GFR (MDRD) Af Amer 80, Est GFR (MDRD) Non-Af 66, BUN/Creatinine Ratio 10.4, Glucose 95, Calcium 9.0, Total Bilirubin 2.00 H, AST 14 L, ALT 19, Alkaline Phosphatase 55, Total Protein 6.3 L, Albumin 3.4, Globulin 2.9, Albumin/Globulin Ratio 1.2 Current Medications Dextrose (D50w Syringe) 0 gm IV X1 PRN; Protocol PRN Reason: Hypoglycemia Glucagon () 1 mg IM .X1 PRN PRN Reason: Hypoglycemia Sodium Chloride () 500 mls @ 15 mls/hr IV PRN PRN PRN Reason: Blood Transfusion Iron Sucrose 200 mg/ Sodium (Chloride) 110 mls @ 220 mls/hr IV DAILY JOHN Stop: 05/17/19 10:29 Last Infusion: 05/16/19 10:49 Dose: Infused Documented by: Sodium Chloride () 1,000 mls @ 75 mls/hr IV .[id number] JOHN Last Infusion: 05/16/19 10:58 Dose: 75 mls/hr Documented by: Levothyroxine Sodium (Synthroid) 125 mcg PO DAILY@0600 [facility] Last Admin: 05/16/19 06:15 Dose: Not Given Documented by: Pantoprazole Sodium (Protonix) 20 mg PO BID JOHN Sodium Chloride () 10 - 40 ml IV UD PRN PRN Reason: SALINE FLUSH Last Admin: 05/15/19 01:04 Dose: 20 ml Documented by: Sucralfate (Carafate) 1 gm PO 1HR_ACHS JOHN Discharge Diet: No Restrictions Discharge Activity: Return to Normal Activity Home Medications: Medications to take at Discharge Cholecalciferol (Vitamin D3) [Vitamin D3] 2,000 unit PO DAILY 07/23/13 multivitamin tablet 1 tab PO QAM 01/23/18 levothyroxine 125 mcg tablet 125 mcg PO QDAY #90 tab 01/26/18 Iron Polysaccharide Complex [Ferrex 150] 150 mg PO DAILY #30 cap 05/16/19 Omeprazole [Prilosec] 20 mg PO BID #60 cap 05/16/19 Sucralfate [Carafate] 1 gm PO 4X/DAY #120 tab 05/16/19 Following Prescrptions Were Given to Patient: Sucralfate [Carafate] 1 gm PO 4X/DAY #120 tab Prescription Printed Iron Polysaccharide Complex [Ferrex 150] 150 mg PO DAILY #30 cap Prescription Printed Omeprazole [Prilosec] 20 mg PO BID #60 cap Prescription Printed Primary Care Physician: [facility] [Primary Care Provider] - Please follow up with your Primary Care Physician in: 1-2 weeks Please Follow Up With: Jim Vera MD When: as directed Disposition: Home Minutes spent on discharge:: 35 Patient Condition:: Stable Medical Necessity - Tobacco Use Smoking Status: Former smoker Tobacco Use: Cigarettes Meaningful Use Info Meaningful Use Diagnoses (Choose all that apply): None applicable <Gee Harrison - Last Filed: 05/16/19 16:47> Discharge Date and Diagnosis - Secondary Discharge Diagnosis Chronic Problems (Last Reviewed 05/14/19 @ 19:13 by Vanda Mcneill DO) Hypothyroidism (acquired) (Chronic) Hospital Course and Treatment Summary of Care Provided: This patient was seen in conjunction with Luis Armando Mahmood PA-C . I have independently interviewed and examined the patient and reviewed pertinent historical, laboratory, and other data. Please refer to Luis Armando Mahmood PA-C note for details of this patient's presentation, findings, and recommendations. I have reviewed Luis Armando Mahmood PA-C note and concur with documented findings. In brief, patient is a 83-year-old gentleman who was sent to the ED after routine lab work drawn as outpatient came back abnormal. He was found to have significant anemia with hemoglobin of 5.8 with MCV of 69.3 patient admitted to regular nursing floor he has received 2 unit PRBC transfusion so far. Consult placed to general surgery for both upper and lower endoscopic evaluation Patient EGD demonstrated the presence of a nonbleeding gastric ulcer in addition to a large hiatal hernia, colonoscopy demonstrated no mass patient was however found to have hemorrhoids which are nonbleeding patient H&H had stabilized at the time of discharge following his blood transfusion Assessment: 1. Severe microcytic anemia 2. 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 History of multi-nodular goiter status post thyroidectomy 4. Hypothyroidism secondary to #2 5. BPH patient on Flomax Hospital course: As documented above - Physical Exam Vitals/I&O's: Vital Signs Temp Pulse Resp BP Pulse Ox 98.3 F 75 18 164/75 H 98 05/16/19 16:13 05/16/19 16:13 05/16/19 16:13 05/16/19 16:13 05/16/19 16:13 Oxygen Delivery Method Room Air Weight: 86.7 kg Body Mass Index (BMI) 27.3 Intake and Output for Last 24 Hours 05/14/19 05/15/19 05/16/19 23:59 23:59 23:59 Intake Total 778 / 778 2115 / 4115 2597.50 / 2597.50 Output Total 600 / 600 Balance 778 / 778 1515 / 3515 2597.50 / 2597.50 Microbiology Past 72 Hours 05/15/19 Unknown Stool Stool Occult Blood (CHAVO) - Final Laboratory Results 05/15/19 17:20: Haptoglobin Pending 05/16/19 06:00: WBC 10.6, RBC 4.30 L, Hgb 9.3 L, Hct 31.3 L, MCV 72.8 L D, MCH 21.6 L, MCHC 29.7 L, RDW Std Deviation 59.5 H, RDW Coeff of [place] 23.6 H, Plt Count 340, MPV 11.1, Differential Comment SCANNED 05/16/19 06:00: Sodium 142, Potassium 4.1, Chloride 112 H, Carbon Dioxide 26.0, Anion Gap 4 L, BUN 12, Creatinine 1.15, Estim Creat Clear Calc 58.19, Est GFR (MDRD) Af Amer 80, Est GFR (MDRD) Non-Af 66, BUN/Creatinine Ratio 10.4, Glucose 95, Calcium 9.0, Total Bilirubin 2.00 H, AST 14 L, ALT 19, Alkaline Phosphatase 55, Total Protein 6.3 L, Albumin 3.4, Globulin 2.9, Albumin/Globulin Ratio 1.2 Code Visit Inpatient E&M: [id number] Disch Hosp
--- NOTE | 2019-05-16 15:15 | CASEMGMT ---
Updated clinicals, d/c instructions [facility] at this time. Namita DIXON CM
[2019-05-17 10:13] LABS: Haptoglobin 73 mg/dL (34-200)
== END 2019-05-16 16:31 | disposition home or self-care (01) | DRG 811 ==
LOC: ED 16:33 → PCU 18:10
PROVIDERS: Physician Assistant; Surgery; Admitting Provider Internal Medicine; Emergency Provider Emergency Medicine; Referring Provider Internal Medicine; Visit Provider Internal Medicine
PROC: 0DJD8ZZ Inspection of Lower Intestinal Tract, Via Natural or Artificial Opening Endoscopic (ICD-10-PCS; CPT 45378; principal; 2019-05-16 13:10)
DX: D50.0 Iron deficiency anemia secondary to blood loss (chronic) (principal); K25.4 Chronic or unspecified gastric ulcer with hemorrhage; E89.0 Postprocedural hypothyroidism; N40.0 Benign prostatic hyperplasia without lower urinary tract symptoms; K44.9 Diaphragmatic hernia without obstruction or gangrene; K64.8 Other hemorrhoids; Z79.82 Long term (current) use of aspirin
CPT/HCPCS: 36415; 80048; 80053; 80076; 82274; 82728; 83010; 83540; 83550; 83615; 84443; 85025; 85027; 85045; 85610; 85730; 86644; 86850; 86900; 86901; 86920; 86922; 93005; 99285; J1756; J7030; J7040; P9016; A4216

== ENCOUNTER → 2021-12-30 | Outpatient (CLI) | payer MEDICARE, OTHER, SELFPAY ==
[2021-12-30 15:05] LABS: Hemoglobin 14.7 g/dL (13.0-16.5); Mean Corpuscular Volume 93.9 fL (80-94); Mean Platelet Vol. 11.8 fl (6.2-12.0); Platelet Count 188 K/mm3 (150-450); RBC Distribution Width CV 13.8 % (11.6-14.6); White Blood Count 5.6 K/mm3 (4.4-11.0)
[2021-12-30 15:31] LABS: Ferritin 30 ng/mL (26-388); Iron 117 ug/dL (65-175)
== END | disposition home or self-care (01) ==
PROVIDERS: Referring Provider Internal Medicine Gastroenterology; Visit Provider Internal Medicine Gastroenterology
DX: D50.0 Iron deficiency anemia secondary to blood loss (chronic) (principal)
CPT/HCPCS: 36415; 82728; 83540; 85027